=== PATIENT | female | born 1990 | race Caucasian/White ===

== ENCOUNTER 2021-11-05 20:47 | Inpatient (IN) ==
[2021-11-05] MEDS ORDERED: BUTORPHANOL 2 MG/ML VIAL IV PRN (21:49)
[2021-11-05] MEDS ORDERED: CARBOPROST TROMETHAMINE 250 MCG/ML AMP IM PRN (21:49)
[2021-11-05] MEDS ORDERED: ONDANSETRON 4 MG/2 ML VIAL IV PRN (21:49)
[2021-11-05] MEDS ORDERED: OXYTOCIN/LR 20 UNIT/1,000 ML BAG IV ONE (21:49)
[2021-11-05] MEDS ORDERED: TRANEXAMIC ACID 1,000 MG in SODIUM CHLORIDE 0.9% 100 ML IV PRN (21:49)
[2021-11-05] MEDS ORDERED: METHYLERGONOVINE 0.2 MG/1 ML AMP IM PRN (21:49)
[2021-11-05] MEDS ORDERED: miSOPROStoL 200 MCG TABLET RECTAL PRN (21:49)
[2021-11-05] MEDS ORDERED: LACTATED RINGERS 1,000 ML IV SCH (22:00)
[2021-11-05 22:19] LABS: Basophils % 0.2 % (0.0-0.8); Eosinophils % 0.1 % (0.00-10.9); Hematocrit 36.6 VOL% (35.7-47.0); Hemoglobin 12.9 GM/DL (12.0-16.0); Immature Granulocytes % 0.4 %; Immature Granulocytes Absolute 0.06 #; Lymphocytes # 2.2 10*3/uL (1.4-4.0); Mean Corpuscular HGB Conc 35.2 GM/DL (32-36); Mean Corpuscular Volume 91.7 FL (87-102); Mean Platelet Volume 10.5 FL (9.6-12.0); Monocytes # 0.6 10*3/uL (0.11-0.8); Monocytes % 4.3 % (1.7-12.7); Platelet Count 214 T/CUMM (130-400); Red Blood Count 3.99 MC/CUMM (3.8-5.5); Red Cell Distribution Width 12.4 % (9.3-17.3); White Blood Count 14.6 T/CUMM (4-12)
[2021-11-06] MEDS: MEPERIDINE 50 MG/1 ML VIAL IV PRN ×2 (04:01→06:37)
[2021-11-06] MEDS ORDERED: OXYTOCIN/LR 20 UNIT/1,000 ML BAG IV SCH (06:30)
[2021-11-06] MEDS ORDERED: LACTATED RINGERS 1,000 ML IV ONE (07:07)
[2021-11-06] MEDS ORDERED: FAMOTIDINE 20 MG/2 ML VIAL IV ONE ×2 (07:07→07:12)
[2021-11-06] MEDS ORDERED: PROMETHAZINE 25 MG/1 ML VIAL IM ONE (07:07)
[2021-11-06] MEDS ORDERED: hydrOXYzine HCL 25 MG/1 ML VIAL IM PRN (07:07)
[2021-11-06] MEDS ORDERED: diphenhydrAMINE 50 MG/1 ML VIAL IV PRN ×2 (07:07)
[2021-11-06] MEDS ORDERED: NALOXONE 0.4 MG/ML VIAL IV PRN (07:07)
[2021-11-06] MEDS ORDERED: CITRIC ACID/SODIUM CITRATE 30 ML UDCUP PO ONE (07:07)
[2021-11-06] MEDS ORDERED: ePHEDrine 50 MG/ML VIAL IV PRN (07:07)
[2021-11-06] MEDS ORDERED: CITRIC ACID/SODIUM CITRATE 30 ML UDCUP ONE (07:11)
[2021-11-06] MEDS ORDERED: fentaNYL 2 MCG/ROPIV 0.2% EPID 100 ML EPIDURAL ONE (07:12)
[2021-11-06] MEDS ORDERED: ePHEDrine 50 MG/ML VIAL ONE (07:12)
[2021-11-06] MEDS ORDERED: fentaNYL 2 MCG/ROPIV 0.2% EPID 100 ML EPIDURAL SCH (07:30)
[2021-11-06] MEDS ORDERED: LACTATED RINGERS 1,000 ML IV SCH (07:30)
[2021-11-06] MEDS ORDERED: CARBOPROST TROMETHAMINE 250 MCG/ML AMP IM ONE (08:51)
[2021-11-06] MEDS ORDERED: TRANEXAMIC ACID 1,000 MG/10 ML VIAL ONE (08:51)
[2021-11-06] MEDS ORDERED: miSOPROStoL 200 MCG TABLET ONE (08:51)
[2021-11-06] MEDS ORDERED: METHYLERGONOVINE 0.2 MG/1 ML AMP ONE (08:51)
[2021-11-06] MEDS ORDERED: SODIUM CHLORIDE 0.9% 100 ML IV ONE (08:51)
[2021-11-06 09:42] LABS: Cord Venous Blood HCO3 21.5 MMOL/L; Cord Venous Blood PO2 31.8
[2021-11-06 09:44] LABS: Bilirubin,Urine Negative (Negative); Blood, Urine Negative (Negative); Glucose,Urine (UA) Negative (Negative); Ketones,Urine Negative (Negative); Mucus,Urine Occasional /LPF (Occasional); Nitrite,Urine Negative (Negative); Protein,Urine Negative (Negative); RBC,Urine 1 /HPF (0-4); Squamous Epithelial Cell,Urine Occasional /HPF (0-10); Urine Appearance Clear (Clear); Urine Color Yellow (Yellow); Urine Specific Gravity > 1.030 (1.001-1.035); Urine Urobilinogen 0.2 eU/dL (<2.0)
[2021-11-06] MEDS ORDERED: WITCH HAZEL PADS 100/JAR TOP PRN (12:29)
[2021-11-06] MEDS ORDERED: BISACODYL 10 MG SUPP RECTAL PRN (12:29)
[2021-11-06] MEDS ORDERED: RHO(D) IMMUNE GLOBULIN 300 MCG SYRINGE IM ONE (12:29)
[2021-11-06] MEDS ORDERED: BENZOCAINE 20%/MENTHOL 0.5% SPRAY 56 GM CAN TOP PRN (12:29)
[2021-11-06] MEDS ORDERED: DIPH/TET/ACEL PERT BOOSTER VACCINE 0.5 ML VIAL IM ONE (12:29)
[2021-11-06] MEDS ORDERED: LANOLIN 50% CREAM 0.3 OZ TUBE TOP PRN (12:29)
[2021-11-06] MEDS ORDERED: ACETAMINOPHEN 325 MG TABLET PO PRN (12:29)
[2021-11-06] MEDS ORDERED: oxyCODONE/ACETAMINOPHEN 5-325 MG TABLET PO PRN (12:29)
[2021-11-06] MEDS ORDERED: OXYTOCIN/LR 20 UNIT/1,000 ML BAG IV ONE (12:29)
[2021-11-06] MEDS ORDERED: MEASLES/MUMPS/RUBELLA VACCINE 0.5 ML VIAL SUBCUT ONE (12:29)
[2021-11-06] MEDS ORDERED: ONDANSETRON 4 MG/2 ML VIAL IV PRN (12:29)
[2021-11-06] MEDS ORDERED: HYDROCORTISONE 2.5% RECTAL CREAM 30 GM TUBE TOP PRN (12:29)
[2021-11-06] MEDS: IBUPROFEN 800 MG TABLET PO PRN ×2 (13:54→20:23)
[2021-11-06] MEDS: oxyCODONE/ACETAMINOPHEN 5-325 MG TABLET PO PRN (20:24)
[2021-11-06] MEDS: DOCUSATE SODIUM 100 MG CAPSULE PO SCH (20:24)
[2021-11-06] MEDS: HydrOXYzine PAMOATE 25 MG CAPSULE PO PRN (21:42)
[2021-11-07] MEDS: IBUPROFEN 800 MG TABLET PO PRN ×3 (04:22→17:56)
[2021-11-07 05:02] LABS: Basophils % 0.3 % (0.0-0.8); Eosinophils # 0.1 10*3/uL (0.0-0.87); Eosinophils % 0.7 % (0.00-10.9); Hematocrit 33.9 VOL% (35.7-47.0); Hemoglobin 11.8 GM/DL (12.0-16.0); Immature Granulocytes % 0.5 %; Immature Granulocytes Absolute 0.06 #; Lymphocytes # 2.5 10*3/uL (1.4-4.0); Lymphocytes % 22.3 % (21.3-54.2); Mean Corpuscular HGB Conc 34.8 GM/DL (32-36); Mean Corpuscular Volume 92.6 FL (87-102); Mean Platelet Volume 10.5 FL (9.6-12.0); Monocytes # 0.5 10*3/uL (0.11-0.8); Monocytes % 4.7 % (1.7-12.7); Neutrophils % 71.5 % (38.7-73.9); Platelet Count 176 T/CUMM (130-400); Red Blood Count 3.66 MC/CUMM (3.8-5.5); Red Cell Distribution Width 12.6 % (9.3-17.3); White Blood Count 11.2 T/CUMM (4-12)
[2021-11-07] MEDS: DOCUSATE SODIUM 100 MG CAPSULE PO SCH (09:03)
[2021-11-07] MEDS: oxyCODONE/ACETAMINOPHEN 5-325 MG TABLET PO PRN (09:04)
[2021-11-08] MEDS: HydrOXYzine PAMOATE 25 MG CAPSULE PO PRN (01:50)
[2021-11-08] MEDS: DOCUSATE SODIUM 100 MG CAPSULE PO SCH ×2 (03:18→09:15)
[2021-11-08 08:59] VITALS: BP 125/86
[2021-11-08] MEDS: oxyCODONE/ACETAMINOPHEN 5-325 MG TABLET PO PRN (09:15)
== END 2021-11-08 13:20 | disposition home or self-care (01) | DRG 807 ==
LOC: EDSTATUS 20:47 → N.LDOUT 20:47 → N.LD 21:45 → N.OB 11-06 12:08
PROVIDERS: ADMIT Specialist; ATTEND Specialist